=== PATIENT | female | born 2000 | race American Indian/Alaskan Native ===

== ENCOUNTER 2019-12-09 14:47 | Emergency (ER) | payer BC, MEDICAID ==
--- NOTE | 2019-12-09 18:17 | Emergency Department Report ---
Blank Doc - Documentation Documentation: 19-year-old female that presents with dog bite to left thigh and right knee. stated happened 2 days ago. Denies any dog UTD . This initial assessment/diagnostic orders/clinical plan/treatment(s) is/are subject to change based on patient's health status, clinical progression and re- assessment by fellow clinical providers in the ED. Further treatment and workup at subsequent clinical providers discretion. Patient/guardians urged not to elope from the ED as their condition may be serious if not clinically assessed and managed. Initial orders include: 1- Patient sent to [facility] for further evaluation and treatment 2- xrays r/o foreign body 3- rabies vaccines and cleaning wound needs to be done
[2019-12-09] MEDS ORDERED: RABIES VACCINE, HUMAN DIPLOID/PF 2.5 UNIT/ML VIAL IM ONE (18:18)
[2019-12-09 18:48] VITALS: BP 126/85
[2019-12-09] MEDS ORDERED: RABIES IMMUNE GLOBULIN P/F 300 UNIT/ML INJ 5 ML IM ONE (19:00)
--- NOTE | 2019-12-09 20:39 | XRay Report ---
LEFT FEMUR for VIEW(S) INDICATION / CLINICAL INFORMATION: dog bite r/o foreign body COMPARISON: None available. FINDINGS: BONES / JOINT(S): No fracture. No dislocation. No significant arthritis. SOFT TISSUES: Moderate edema and swelling extending along the medial thigh with subcutaneous gas trac daniel along the superficial fascia of the vastus medialis, as well as in the more superficial soft tis sues to the level of the mid thigh. ADDITIONAL FINDINGS: None. IMPRESSION: 1. Soft tissue injury with edema and subcutaneous air as above. No retained radiopaque foreign object . Signer Name: Vahe Jones MD Signed: 12/09/2019 8:35 PM Workstation Name: [id number]
--- NOTE | 2019-12-09 20:41 | XRay Report ---
RIGHT KNEE 3 VIEW(S) INDICATION / CLINICAL INFORMATION: dog bite r/o foreign body COMPARISON: Femur radiograph 12/09/2019 FINDINGS: BONES / JOINT(S): No acute fracture or subluxation. No evidence of significant air-fluid in the right knee joint. No significant arthritis. SOFT TISSUES: Minimal edema involving the peripheral vastus medialis better visualized on the radiogr aph from same date. ADDITIONAL FINDINGS: None. Signer Name: Vahe Jones MD Signed: 12/09/2019 8:36 PM Workstation Name: [id number]
[2019-12-09] MEDS ORDERED: DIPHtheria,PERTUSSIS(ACELL),TETANUS VACCINE/PF 0.5 ML VIAL IM ONE (21:22)
[2019-12-09] MEDS ORDERED: CLINDAMYCIN 300 MG CAP PO ONE (21:24)
[2019-12-09] MEDS ORDERED: SULFAMETHOXAZOLE/TRIMETHOPRIM 800/160MG DS TAB PO ONE (21:24)
--- NOTE | 2019-12-09 21:51 | Emergency Department Report ---
HPI - General Chief Complaint: Animal Bite Time Seen by Provider: 12/09/19 18:16 - HPI HPI: This is a 19-year-old -[place] female presents to the emergency department with complaint of a dog bite to the left thigh and right knee that occurred 2 days ago on 12/07/2019. The worst area of involvement is the left lower medial thigh. The patient has discomfort to this area and it has made her legs feel stiff and she says she is unable to bear weight on the left leg. She says that the area of the bite, where the laceration, has an odor to it and has some mild discharge from the wound. Unknown last tetanus vaccination. She does not know whose dog it is. ED Past Medical Hx - Past Medical History Previous Medical History?: Yes Additional medical history: bronchitis - Surgical History Past Surgical History?: Yes Additional Surgical History: knee surgery at 18 months - Social History Smoking Status: Never Smoker Substance Use Type: None - Medications Home Medications: Home Medications Medication Instructions Recorded Confirmed Last Taken Type Clindamycin [Clindamycin CAP] 300 mg PO Q8H #21 capsule 12/09/19 Unknown Rx HYDROcodone/APAP 5-325 [[place] 1 each PO Q6HR PRN #12 tablet 12/09/19 Unknown Rx 5/325] Sulfamethoxazole/Trimethoprim 1 each PO BID #14 tablet 12/09/19 Unknown Rx [Bactrim DS TAB] ED Review of Systems ROS: Stated complaint: DOG BITE Other details as noted in HPI Comment: All other systems reviewed and negative Constitutional: denies: chills, fever Respiratory: denies: shortness of breath Cardiovascular: denies: chest pain Musculoskeletal: arthralgia, myalgia Skin: other (Laceration, discharge from wound) Neurological: denies: numbness, paresthesias Physical Exam - Physical Exam Vital Signs: Vital Signs 12/09/19 18:41 Temperature 98.2 F Pulse Rate 83 Respiratory 18 Rate Blood Pressure 126/85 O2 Sat by Pulse 100 Oximetry Physical Exam: GENERAL: The patient is well-developed well-nourished. HENT: Normocephalic. Atraumatic. Patient has moist mucous membranes. EYES: Extraocular motions are intact. NECK: Supple. Trachea is midline. CHEST/LUNGS: Clear to auscultation. There is no respiratory distress noted. HEART/CARDIOVASCULAR: Regular. There is no tachycardia. ABDOMEN: There is no abdominal distention. SKIN: There are a few small puncture wounds to the medial right knee and distal thigh. There is a moderate-sized irregular laceration and skin tear to the medial left thigh. It is about 3 inches in its greatest diameter with a flap. no current bleeding. There is a very small amount of some yellowish discharge to the wound. No surrounding erythema. NEURO: The patient is awake, alert, and oriented. The patient is cooperative. The patient has no focal neurologic deficits. Normal speech. MUSCULOSKELETAL: There is tenderness to palpation to the left distal thigh. ED Course Vital Signs 12/09/19 18:41 Temperature 98.2 F Pulse Rate 83 Respiratory 18 Rate Blood Pressure 126/85 O2 Sat by Pulse 100 Oximetry ED Medical Decision Making - Radiology Data Radiology results: report reviewed LEFT FEMUR for VIEW(S) INDICATION / CLINICAL INFORMATION: dog bite r/o foreign body COMPARISON: None available. FINDINGS: BONES / JOINT(S): No fracture. No dislocation. No significant arthritis. SOFT TISSUES: Moderate edema and swelling extending along the medial thigh with subcutaneous gas tracking along the superficial fascia of the vastus medialis, as well as in the more superficial soft tissues to the level of the mid thigh. ADDITIONAL FINDINGS: None. IMPRESSION: 1. Soft tissue injury with edema and subcutaneous air as above. No retained radiopaque foreign object. RIGHT KNEE 3 VIEW(S) INDICATION / CLINICAL INFORMATION: dog bite r/o foreign body COMPARISON: Femur radiograph 12/09/2019 FINDINGS: BONES / JOINT(S): No acute fracture or subluxation. No evidence of significant air-fluid in the right knee joint. No significant arthritis. SOFT TISSUES: Minimal edema involving the peripheral vastus medialis better visualized on the radiograph from same date. ADDITIONAL FINDINGS: None. - Medical Decision Making This patient presents to the emergency department with a complaint of a dog bite from 2 days ago. The worst area of injury is the left medial distal thigh. There is some slight oozing of some yellowish discharge but no obvious purulence and no surrounding erythema. Patient's vital signs are reassuring including being afebrile. Patient was given a tetanus booster. She was given first dose of rabies vaccination and instructed to follow-up on day 7, 21 and 28 with the health department. She was given a dose of pain medication and a dose of antibiotics. Since the patient has allergic to amoxicillin she will not be placed on Augmentin. Instead she was given Bactrim with clindamycin. Since the laceration is 2 days old, as well as the fact that it is from a dog bite, the area was not approximated. However it was cleaned and covered with a sterile dressing. She will be placed on crutches and given referrals for orthopedist. We had a long discussion about signs/symptoms of infection for which she will need to be seen sooner or return to the emergency department. Critical Care Time: No Critical care attestation.: If time is entered above; I have spent that time in minutes in the direct care of this critically ill patient, excluding procedure time. ED Disposition Clinical Impression: Dog bite of left thigh Qualifiers: Encounter type: initial encounter Qualified Code(s): S71.152A - Open bite, left thigh, initial encounter; W54.0XXA - Bitten by dog, initial encounter Dog bite of right knee Qualifiers: Encounter type: initial encounter Qualified Code(s): S81.051A - Open bite, right knee, initial encounter; W54.0XXA - Bitten by dog, initial encounter Laceration of left thigh Qualifiers: Encounter type: initial encounter Qualified Code(s): S71.112A - Laceration without foreign body, left thigh, initial encounter Disposition: - TO HOME OR SELFCARE Is pt being admited?: No Condition: Stable Instructions: Animal Bite (ED), Laceration (ED), Rabies Vaccine (Injection), Rabies Immune Globulin (Injection) Additional Instructions: Please take the antibiotics as prescribed. Follow-up with an orthopedist and I have given you a referral for to local orthopedist, Dr. Cedeno and Saleem. Clean the area with soap and water and then make sure it remains dry. Please make sure you are seen immediately with any signs/symptoms of infection such as increased pain, new pain, increased swelling, surrounding redness, development of fever, discharge of pus, or with any acute distress. You have been prescribed a medication that is sedating and therefore should not be taken prior to driving, working, and responsible for children and in no way should be mixed with alcohol of any quantity. Prescriptions: Sulfamethoxazole/Trimethoprim [Bactrim DS TAB] 1 each PO BID #14 tablet Clindamycin [Clindamycin CAP] 300 mg PO Q8H #21 capsule HYDROcodone/APAP 5-325 [[place] 5/325] 1 each PO Q6HR PRN #12 tablet PRN Reason: Pain Referrals: SHANIQUA CEDENO MD [Staff Physician] - 2-3 Days [facility] [Provider Group] - 2-3 Days Time of Disposition: 22:22
[2019-12-09] MEDS ORDERED: oxyCODONE /ACETAMINOPHEN 5-325MG TAB PO ONE (22:17)
== END 2019-12-09 22:55 | disposition home or self-care (01) ==
LOC: ED 14:47
DX: S71.112A Laceration without foreign body, left thigh, initial encounter (principal); S81.051A Open bite, right knee, initial encounter; Z98.890 Other specified postprocedural states; Z79.2 Long term (current) use of antibiotics; Z79.899 Other long term (current) drug therapy; Z88.1 Allergy status to other antibiotic agents; Z91.012 Allergy to eggs; Z91.011 Allergy to milk products; Z91.018 Allergy to other foods; W54.0XXA Bitten by dog, initial encounter; Y93.89 Activity, other specified; Y92.89 Other specified places as the place of occurrence of the external cause; Y99.8 Other external cause status
CPT/HCPCS: 90375; 90471; 90472; 90675; 90715; 96372; 99284